=== PATIENT | male | born 1960 | race Caucasian/White ===

== ENCOUNTER 2022-06-03 10:18 | Emergency (ER) | payer OTHER, SELFPAY ==
[2022-06-03] VITALS (38 sets, daily range): BP systolic 111–154; BP diastolic 70–105; PULSE 70–97; RESP 14–18; TEMP 36.4–37; O2SAT 94–99; BMI 36.3
--- NOTE | 2022-06-03 10:59 | ED_ITS ---
HPI - Chest Pain General Chief Complaint: Chest Pain Stated Complaint: sternum pain Time Seen by Provider: 06/03/22 10:49 History of Present Illness HPI narrative: This 61-year-old male comes in reporting chest discomfort over the past 3 days. He states that he had a heart attack 12 years ago and has been doing well since then. Three days ago he began having chest discomfort when walking a rather short distance. After stopping and resting he states the pain went away. Since then when ambulating he began to get short of breath, some lightheadedness, and chest pain. These symptoms resolved when resting. He does not report any diaphoresis, nausea, or vomiting. He takes a regular strength aspirin daily and did so today prior to arrival here. Currently he is having no symptoms. Related Data Home Medications Medication Instructions Recorded Confirmed alprazolam 0.5 mg tablet mg 06/03/22 clopidogrel 75 mg tablet mg 06/03/22 ezetimibe 10 mg tablet mg 06/03/22 methylphenidate HCl 36 mg mg PO 06/03/22 tablet,extended release 24 hr (Concerta) metoprolol tartrate 25 mg tablet mg 06/03/22 tamsulosin 0.4 mg capsule mg PO 06/03/22 Allergies Allergy/AdvReac Type Severity Reaction Status Date / Time isosorbide Allergy Verified 06/03/22 10:28 Review of Systems Status of ROS Reports: 10 or more systems reviewed and unremarkable except as noted in History and below Narrative Constitutional: No fevers, no weight gain or loss. Eyes: No discharge. No vision changes. HENT: No congestion, no sore throat, no ear pain. Cardiovascular: No palpitations. Chest pain as described above. Respiratory: No wheezes, no cough. Shortness of breath with exertion. Gastrointestinal: No abdominal pain, no vomiting, no diarrhea. Genitourinary: No dysuria, no hematuria. Musculoskeletal: Normal range of motion. Skin: No rashes, no pruritis. Neurological: No dizziness, weakness, sensory change, speech change. Endo/Heme/Allergies: No bruising or bleeding. No polydipsia. Pysch: no suicidality, no anxiety, no insomnia. All other systems reviewed and are negative. PFSH PFSH Social History Smoking Status: Never smoker How often do you have a drink containing alcohol: monthly or less How many standard drinks containing alcohol do you have on a typical day: 1 or 2 How often do you have six or more drinks on one occasion: Never AUDIT-C Alcohol total score: 1 Non-prescribed substance use: denies use Exam Narrative Exam Narrative: Constitutional: Well-developed, well-nourished, no acute distress. HEENT: Normocephalic, atraumatic. Neck: Normal range of motion. Nontender. Supple. Heart: Regular. No murmurs. Normal rate. Intact distal pulses. Lungs: Clear to auscultation. No chest discomfort. No wheezes, rhonchi, or rales. Abdomen: Normal bowel sounds. Nontender. No rebound tenderness. Genitalia: Deferred. Back: No midline tenderness. Normal range of motion. Extremities: Normal range of motion. No injury. Skin: Intact. No rash. Warm. No erythema or pallor. Neurologic: No altered sensation. No weakness. Alert and oriented. Psychiatric: No suicidality. No anxiety or depression. No insomnia. Nursing notes and vitals signs are reviewed. Const Vital Signs, click to edit/add: Vital Signs - 24 hr 06/03/22 10:24 06/03/22 12:11 06/03/22 12:15 Temperature 98.6 F Pulse Rate 74 73 Pulse Rate [Right Pulse Oximeter] 80 Respiratory Rate 18 Blood Pressure Blood Pressure [Right Upper Arm] 154/101 H Pulse Oximetry 96 95 96 Oxygen Delivery Method Room Air 06/03/22 12:30 06/03/22 10:45 06/03/22 12:45 Temperature Pulse Rate 73 81 Pulse Rate [Right Pulse Oximeter] 72 Respiratory Rate Blood Pressure Blood Pressure [Right Upper Arm] 137/95 H Pulse Oximetry 99 95 98 Oxygen Delivery Method Room Air 06/03/22 13:00 06/03/22 13:12 06/03/22 13:36 Temperature Pulse Rate 86 85 Pulse Rate [Right Pulse Oximeter] Respiratory Rate Blood Pressure 147/89 H Blood Pressure [Right Upper Arm] Pulse Oximetry 99 Oxygen Delivery Method 06/03/22 13:45 06/03/22 14:00 06/03/22 14:15 Temperature Pulse Rate 92 97 92 Pulse Rate [Right Pulse Oximeter] Respiratory Rate Blood Pressure Blood Pressure [Right Upper Arm] Pulse Oximetry 99 97 97 Oxygen Delivery Method 06/03/22 14:30 06/03/22 14:36 06/03/22 14:45 Temperature Pulse Rate 86 89 83 Pulse Rate [Right Pulse Oximeter] Respiratory Rate Blood Pressure 111/97 H Blood Pressure [Right Upper Arm] Pulse Oximetry 96 96 95 Oxygen Delivery Method 06/03/22 15:00 06/03/22 15:15 06/03/22 15:30 Temperature Pulse Rate 85 85 83 Pulse Rate [Right Pulse Oximeter] Respiratory Rate Blood Pressure Blood Pressure [Right Upper Arm] Pulse Oximetry 96 95 94 Oxygen Delivery Method 06/03/22 15:37 06/03/22 15:38 06/03/22 15:45 Temperature Pulse Rate 77 82 76 Pulse Rate [Right Pulse Oximeter] Respiratory Rate Blood Pressure 128/70 Blood Pressure [Right Upper Arm] Pulse Oximetry 94 94 95 Oxygen Delivery Method 06/03/22 16:00 06/03/22 16:15 06/03/22 16:30 Temperature Pulse Rate 82 77 80 Pulse Rate [Right Pulse Oximeter] Respiratory Rate Blood Pressure Blood Pressure [Right Upper Arm] Pulse Oximetry 96 95 97 Oxygen Delivery Method 06/03/22 16:45 06/03/22 17:00 06/03/22 17:15 Temperature Pulse Rate 77 79 77 Pulse Rate [Right Pulse Oximeter] Respiratory Rate Blood Pressure Blood Pressure [Right Upper Arm] Pulse Oximetry 96 95 96 Oxygen Delivery Method 06/03/22 17:30 06/03/22 17:42 06/03/22 17:43 Temperature Pulse Rate 81 85 75 Pulse Rate [Right Pulse Oximeter] Respiratory Rate Blood Pressure 150/93 H Blood Pressure [Right Upper Arm] Pulse Oximetry 96 96 95 Oxygen Delivery Method 06/03/22 17:45 06/03/22 18:00 06/03/22 18:15 Temperature Pulse Rate 74 70 76 Pulse Rate [Right Pulse Oximeter] Respiratory Rate Blood Pressure Blood Pressure [Right Upper Arm] Pulse Oximetry 94 95 95 Oxygen Delivery Method 06/03/22 18:30 06/03/22 18:36 06/03/22 18:59 Temperature 97.6 F Pulse Rate 75 82 Pulse Rate [Right Pulse Oximeter] 72 Respiratory Rate 14 Blood Pressure 140/105 H Blood Pressure [Right Upper Arm] 148/91 H Pulse Oximetry 95 95 96 Oxygen Delivery Method Room Air 06/03/22 18:37 06/03/22 18:45 Temperature Pulse Rate 79 78 Pulse Rate [Right Pulse Oximeter] Respiratory Rate Blood Pressure Blood Pressure [Right Upper Arm] Pulse Oximetry 95 95 Oxygen Delivery Method Course Vital Signs Vital signs: Initial Vital Signs Temperature 98.6 F 06/03/22 10:24 Temperature Source Temporal Artery Scan 06/03/22 10:24 Pulse Rate 80 06/03/22 10:24 Respiratory Rate 18 06/03/22 10:24 Blood Pressure 154/101 H 06/03/22 10:24 Blood Pressure Mean 118 06/03/22 10:24 Blood Pressure Position Sitting 06/03/22 10:24 Pulse Oximetry 96 06/03/22 10:24 Oxygen Delivery Method 06/03/22 10:24 Vital Signs Temperature 98.6 F 06/03/22 10:24 Pulse Rate 80 06/03/22 10:24 Respiratory Rate 18 06/03/22 10:24 Blood Pressure 154/101 H 06/03/22 10:24 Pulse Oximetry 96 06/03/22 10:24 Oxygen Delivery Method 06/03/22 10:24 Temperature 97.6 F 06/03/22 18:59 Pulse Rate 72 06/03/22 18:59 Respiratory Rate 14 06/03/22 18:59 Blood Pressure 148/91 H 06/03/22 18:59 Pulse Oximetry 96 06/03/22 18:59 Oxygen Delivery Method 06/03/22 18:59 MDM - Chest Pain MDM Narrative Medical decision making narrative: This patient comes in with chest pain that is reproduced when walking a rather short distance and relieved when resting. No his EKG and labs returned with normal findings. His symptoms are nevertheless very suspicious for approaching unstable angina. He does have a cardiac history with a heart attack about 12 years ago in stents placed at that time. He did have a CT angiogram about 3 or 4 years ago that was negative. The patient is not having any symptoms currently when remaining still. He did take a aspirin prior to arrival today. I spoke with the sports trainer engineer remote control diesel at [facility], Dr. Wyman, who wants him transferred there for an angiogram. There will be a bed available there in 48 hours. At 7:20 p.m. the patient was able to leave by ambulance to be admitted at [facility] for ongoing management and treatment. Lab Data Labs: Lab Results 06/03/22 06/03/22 06/03/22 Range/Units 10:59 11:20 11:20 WBC 9.70 (4.50-11.00) K/uL RBC 6.32 H (4.30-5.90) m/uL Hgb 17.8 H (13.5-17.5) gm/dL Hct 52.7 (37.0-53.0) % MCV 83 (80-100) fL MCH 28 (26-34) pg MCHC 34 (32-36) gm/dL RDW Coeff of Dalton 13.0 (11.5-15.5) % Plt Count 261 (140-440) K/uL Neut % (Auto) 70.6 (42.0-72.0) % Lymph % (Auto) 18.1 L (20-44) % Kent % (Auto) 9.1 (0.0-11.0) % Eos % (Auto) 1.6 (0.0-7.0) % Baso % (Auto) 0.3 (0.0-3.0) % Neut # (Auto) 6.84 (1.7-7.0) K/uL Lymph # (Auto) 1.80 (0.90-2.90) K/uL Kent # (Auto) 0.90 (0.00-0.90) K/UL Eos # (Auto) 0.16 (0.00-0.50) K/uL Baso # (Auto) 0.03 (0.00-0.30) K/uL Sodium 136 (135-149) mmol/L Potassium 4.1 (3.6-5.1) mmol/L Chloride 105 (96-114) mmol/L Carbon Dioxide 28 (20-32) mmol/L BUN 24 (7-30) mg/dL Creatinine 0.8 (0.5-1.5) mg/dL Estimated Creat Clear 69.12 Estimated GFR 100 ml/min Glucose 99 (60-115) mg/dL Calcium 8.9 (8.4-10.6) mg/dL SARS-CoV-2 (PCR) (Negative) POC Troponin I 0.01 (0.01-0.04) ng/ml 06/03/22 Range/Units 14:31 WBC (4.50-11.00) K/uL RBC (4.30-5.90) m/uL Hgb (13.5-17.5) gm/dL Hct (37.0-53.0) % MCV (80-100) fL MCH (26-34) pg MCHC (32-36) gm/dL RDW Coeff of Dalton (11.5-15.5) % Plt Count (140-440) K/uL Neut % (Auto) (42.0-72.0) % Lymph % (Auto) (20-44) % Kent % (Auto) (0.0-11.0) % Eos % (Auto) (0.0-7.0) % Baso % (Auto) (0.0-3.0) % Neut # (Auto) (1.7-7.0) K/uL Lymph # (Auto) (0.90-2.90) K/uL Kent # (Auto) (0.00-0.90) K/UL Eos # (Auto) (0.00-0.50) K/uL Baso # (Auto) (0.00-0.30) K/uL Sodium (135-149) mmol/L Potassium (3.6-5.1) mmol/L Chloride (96-114) mmol/L Carbon Dioxide (20-32) mmol/L BUN (7-30) mg/dL Creatinine (0.5-1.5) mg/dL Estimated Creat Clear Estimated GFR ml/min Glucose (60-115) mg/dL Calcium (8.4-10.6) mg/dL SARS-CoV-2 (PCR) Negative SARS-CoV-2 (Negative) POC Troponin I (0.01-0.04) ng/ml ECG Data Attestation: I personally reviewed and interpreted this ECG as follows: Interpretation: Normal sinus rhythm. Rate is 74 beats per minute. There are no ST or T-wave abnormalities. Discharge Plan Discharge Clinical Impression: Unstable angina pectoris Patient Disposition: [facility] Condition: Unchanged Prescriptions: No Action clopidogrel 75 mg tablet Label Comments: TAKE ONE TABLET BY MOUTH ONE TIME DAILY alprazolam 0.5 mg tablet Label Comments: TAKE ONE TABLET BY MOUTH ONE TIME DAILY AT BEDTIME NEEDED. USE SPARINGLY. methylphenidate HCl [Concerta] 36 mg tablet extended release 24hr PO Label Comments: TAKE 1 TABLET (36 MG) BY MOUTH ONCE DAILY. ezetimibe 10 mg tablet Label Comments: TAKE ONE TABLET BY MOUTH ONE TIME DAILY metoprolol tartrate 25 mg tablet Label Comments: TAKE ONE TABLET BY MOUTH TWICE DAILY tamsulosin 0.4 mg capsule PO Label Comments: Take 1 Capsule (0.4 mg) by mouth once daily after a meal. Increase to 2 capsules daily after 4 weeks Follow Up/Referrals: Risa Campoverde PA-C [Primary Care Provider] - Stand Alone Forms: [employer] Info Instructions
[2022-06-03 11:34] LABS: Basophils Absolute Auto 0.03 K/uL (0.00-0.30); Basophils Percent Auto 0.3 % (0.0-3.0); Eosinophils Absolute Auto 0.16 K/uL (0.00-0.50); Eosinophils Percent Auto 1.6 % (0.0-7.0); Hematocrit 52.7 % (37.0-53.0); Hemoglobin* 17.8 gm/dL (13.5-17.5); Immature Granulocytes Abs Auto 0.03 K/uL (0.00-0.30); Immature Granulocytes Pct Auto 0.3 %; Lymphocytes Percent Auto 18.1 % (20-44); Mean Corpuscular HGB Conc 34 gm/dL (32-36); Mean Corpuscular Hemoglobin 28 pg (26-34); Mean Corpuscular Volume 83 fL (80-100); Monocytes Percent Auto 9.1 % (0.0-11.0); Neutrophils Absolute Auto 6.84 K/uL (1.7-7.0); Neutrophils Percent Auto 70.6 % (42.0-72.0); Platelet Count* 261 K/uL (140-440); Red Blood Count 6.32 m/uL (4.30-5.90)
[2022-06-03 11:34] LABS: Troponin, Point-of-Care* 0.01 ng/ml (0.01-0.04)
[2022-06-03 11:36] LABS: Slide Review Reflex No
[2022-06-03 11:48] LABS: Chloride* 105 mmol/L (96-114)
[2022-06-03 11:49] LABS: Potassium* 4.1 mmol/L (3.6-5.1); Sodium* 136 mmol/L (135-149)
[2022-06-03 11:51] LABS: Carbon Dioxide* 28 mmol/L (20-32); Creatinine* 0.8 mg/dL (0.5-1.5); Est. Creatinine Clearance* 69.12; Estimated Glomerular Filt Rate 100 ml/min
[2022-06-03 11:52] LABS: Blood Urea Nitrogen* 24 mg/dL (7-30); Calcium* 8.9 mg/dL (8.4-10.6); Glucose* 99 mg/dL (60-115)
[2022-06-03 15:41] LABS: SARS PCR* Negative SARS-CoV-2 (Negative)
--- NOTE | 2022-06-03 17:18 | ED.NURSE ---
report given to JANETH Flynn at [facility]. pt will go to [id number] via [facility]
== END 2022-06-03 19:20 | disposition home or self-care (01) ==
PROVIDERS: Emergency Provider Emergency Medicine Emergency Medical Services; PCP Physician Assistant Medical
DX: I20.0 Unstable angina (principal)
CPT/HCPCS: 36415; 80048; 84484; 85025; 87635; 93005; 99285

== ENCOUNTER 2022-06-03 19:11 | Outpatient (CLI) | payer OTHER, SELFPAY | END 2022-06-03 19:12 | disposition home or self-care (01) | LOC: AMB 06-04 23:20 | PROVIDERS: PCP Physician Assistant Medical; Visit Provider Family Medicine | DX: I20.0 Unstable angina (principal) | CPT/HCPCS: A0425; A0426; A0427 ==

== ENCOUNTER 2022-08-20 11:15 | Outpatient (RCR) | payer OTHER, SELFPAY | END 2022-11-20 23:59 | disposition home or self-care (01) | PROVIDERS: PCP Physician Assistant Medical; Visit Provider Podiatrist | DX: M19.071 Primary osteoarthritis, right ankle and foot (principal); G57.51 Tarsal tunnel syndrome, right lower limb; Z51.89 Encounter for other specified aftercare | CPT/HCPCS: 97110; 97140; 97161 ==

== ENCOUNTER 2022-11-10 06:15 | Day surgery (SDC) | payer OTHER, SELFPAY ==
[2022-11-10] VITALS (13 sets, daily range): BP systolic 104–128; BP diastolic 76–93; PULSE 70–84; RESP 16–20; TEMP 36.4–37; O2SAT 94–98; BMI 34.7
[2022-11-10] MEDS: LACTATED RINGERS 1000 ML 1,000 ML 100 ML IV (06:10)
[2022-11-10] MEDS: SODIUM CHLORIDE 0.9 % (FLUSH) 10 ML SYRINGE IVF (07:02)
[2022-11-10] MEDS: SCOPOLAMINE 1 MG/3 DAY PATCH 1 PATCH TRANSDERMA (07:20)
[2022-11-10] MEDS: CEFAZOLIN 2 GM in 0.9 % SODIUM CHLORIDE Mini-bag 100 ML IVPB (07:35)
[2022-11-10] MEDS: ROPIVACAINE 0.5% 30 ML 150 MG INJECTION (07:54)
--- NOTE | 2022-11-10 08:08 | W.ANESCHARGE ---
Anesthesia Charges Start Date/Time Anesthesia Start Date: 11/10/22 Anesthesia Start Time: 07:30 Stop Date/Time Anesthesia Stop Date: 11/10/22 Anesthesia Stop Time: 08:28
--- NOTE | 2022-11-10 08:14 | P.ORPRC_ITS ---
Procedure Note Date of procedure: 11/10/22 Procedure: PREOPERATIVE DIAGNOSIS: 1. Right knee medial and lateral meniscus tear POSTOPERATIVE DIAGNOSIS: 1. Right knee medial and lateral meniscus tear 2. 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 Right knee arthroscopic partial medial and lateral meniscectomy SURGEON: Suleman Buchanan M.D. MILLER HEAD WET PROCESS: CORINA Rolle. Of note, an boiler assistant operator was critical for this case to aid in patient positioning, knee manipulation, instrument exchange, and closure. ANESTHESIA: General LMA EBL: 2ml TOURNIQUET: 30 min at 300 torr COMPLICATIONS: None evident INDICATIONS: The patient is a pleasant 61-year-old male who has experienced right knee pain particularly with any twisting or turning. Physical exam was concerning for medial meniscus tear, this was confirmed on MRI. Additionally, attempted nonoperative management has been tried, and failed. Thus, surgery was recommended. FINDINGS: Complex tearing posterior horn to midbody lateral meniscus. Posterior root was intact. Medial meniscus showed central tearing at the midbody to posterior horn junction. Posterior root was intact. Grade 3 chondromalacia over a a 10 mm region weight-bearing portion centrally medial femoral condyle. Grade 2-3 chondromalacia patella median ridge. Grade 1-2 chondromalacia trochlear groove. ACL and PCL intact robust. DESCRIPTION OF PROCEDURE: After a thorough discussion of risks, benefits, and alternatives, the patient was brought to the operating room and placed upon the operating table. Induction of anesthesia was undertaken as previously noted. 2g iv Ancef was administered within 1 hr of incision preoperatively. Appropriate time-out was performed identifying proper patient, site, and procedure. The right lower extremity was prepped and draped in the appropriate sterile fashion using ChloraPrep. The limb was exsanguinated and tourniquet inflated. Anterolateral and anteromedial portals were established with an 11 blade, and a diagnostic arthroscopy was performed. This identified the findings as noted above. Following the diagnostic arthroscopy, a partial medial and lateral menisectomy was performed with the combination of basket forceps and a motorized shaver. Following this, the meniscus was re-probed and found to be stable. Approximately 10-15 % of the overall lateral meniscus and 5-10% of the overall medial meniscus required resection. At this stage, the shaver was reinserted into the suprapatellar pouch and all remaining meniscal debris was evacuated. Instruments were removed, excess fluid was drained, and closure performed with 4-0 Monocryl with Steri-Strips. Dressings were applied, the tourniquet deflated, and the patient was awoken from anesthesia and transferred to the PACU in stable condition. PLAN: 1. Weightbear as tolerated operative extremity. Crutch / walker ambulation assistance PRN. 2. Ice, acetominophen and/or ibuprofen, and Percocet for pain as needed. 3. Knee range of motion and quad sets/straight leg raise regularly 4. Follow up with PA visit in 1-2 weeks for a wound check and possibly to initiate physical therapy.
--- NOTE | 2022-11-10 08:28 | W.ANESCHARGE ---
Anesthesia Charges Start Date/Time Anesthesia Start Date: 11/10/22 Anesthesia Start Time: 07:30 Stop Date/Time Anesthesia Stop Date: 11/10/22 Anesthesia Stop Time: 08:28
== END 2022-11-10 10:14 | disposition home or self-care (01) ==
PROVIDERS: PCP Physician Assistant Medical; Visit Provider Orthopaedic Surgery Sports Medicine
PROC: (CPT 29870; principal; 2022-11-10 07:30)
DX: S83.271A Complex tear of lateral meniscus, current injury, right knee, initial encounter (principal); S83.241A Other tear of medial meniscus, current injury, right knee, initial encounter; M22.41 Chondromalacia patellae, right knee
CPT/HCPCS: 29880; 01400; A9270; J0690; J1100; J2250; J2405; J2704; J2795; J3010; J7120

== ENCOUNTER 2022-11-18 15:51 | Outpatient (CLI) | payer OTHER, SELFPAY ==
--- NOTE | 2022-11-18 16:00 | CRLHL7_ITS ---
For Patients: As a result of the Century Cures Act, medical imaging exams and procedure reports are released immediately into your electronic medical record. You may view this report before your referring provider. If you have questions, please contact your health care provider. INDICATION: Leg pain and swelling TECHNIQUE: Ultrasound venous duplex lower right extremity. Compression venous exam was performed using villegas-scale, color Doppler, and spectral Doppler imaging. COMPARISON: None. FINDINGS: Sonographic imaging demonstrates the right common femoral, deep femoral, superficial femoral, popliteal, posterior tibial and greater saphenous and the contralateral left common femoral veins to be fully compressible with normal color Doppler blood flow. IMPRESSION: Normal right lower extremity venous ultrasound, no sign of deep venous thrombosis. Dictated by John Sampson MD @ 11/18/2022 5:17:51 PM (Electronically Signed)
== END 2022-11-18 15:52 | disposition home or self-care (01) ==
LOC: US 15:53
PROVIDERS: PCP Physician Assistant Medical; Visit Provider Physician Assistant Surgical
DX: R22.41 Localized swelling, mass and lump, right lower limb (principal); M79.604 Pain in right leg; Z98.890 Other specified postprocedural states
CPT/HCPCS: 93971

== ENCOUNTER 2023-08-14 07:58 | Outpatient (CLI) | payer OTHER, SELFPAY ==
--- OUTSIDE RECORDS SUMMARY | 2023-08-14 08:01 | XMS_ITS | Clinical Summary ---
Author Name Unknown Organization [facility] Address [place], [place] [address] Care Team Providers Care Lining Brusher Name Role Phone Emanuel Dolan MD Unavailable [phone] Risa Campoverde Primary Care Provider Rito Daily PsyD, LP Unavailable [phone] Allergies Active Allergy Reactions Criticality Noted Date Comments Citalopram Rash,*Unknown 04/10/2021 Isosorbide Chest Pain,Nausea Only,Shortness Of Breath,Rash 11/20/2010 headache Escitalopram Oxalate Rash High 01/05/2020 Medications Medication Sig Dispensed Refills Start Date End Date Status Coenzyme Q10 (CO Q-10) 200 mg capsuleIndications :Dyslipidemia (high LDL; low HDL) Take 1 capsule by mouth once daily. 90 capsule 3 07/11/19 15 Active multivitamin (MVI) tablet Take 1 Tablet by mouth once daily. 0 11/10/19 15 Active cholecalciferol, vitamin D3, 100 mcg (4,000 unit) cap Take 1 Tablet by mouth once daily. 0 08/14/19 19 Active omeprazole (PRILOSEC) 20 mg Delayed-Release capsuleIndications :Gastroesophageal reflux disease, esophagitis presence not specified TAKE ONE CAPSULE BY MOUTH ONE TIME DAILY WITH FOOD 90 capsule 2 10/28/19 20 Active aspirin chewable 81 mg chewable tabletIndications: Unstable angina (HC) Chew 1 Tablet (81 mg) by mouth once daily with a meal. *Decreased dose as of 06/04/2022* 90 Tablet 3 06/05/19 23 Active ALPRAZolam (XANAX) 0.5 mg tabletIndications: Anxiety TAKE ONE TABLET BY MOUTH ONE TIME DAILY AT BEDTIME NEEDED. USE SPARINGLY. 15 Tablet 11/22/19 23 Active evolocumab (Repatha SureClick) 140 mg/mL subcutaneous pen injector Inject 1 mL (140 mg) subcutaneous every 2 weeks. Inject into abdomen, thigh, or upper arm; rotate injection sites. 6 mL 3 11/26/19 23 Active aspirin chewable 81 mg chewable tabletIndications: S/P CABG x 1 Chew 1 Tablet (81 mg) by mouth once daily. 0 01/30/20 23 Active acetaminophen (TYLENOL EXTRA STRGTH) 500 mg tabletIndications: S/P CABG x 1 Take 1 Tablet (500 mg) by mouth every 4 hours if needed for Pain. Max acetaminophen dose: 4000mg in 24 hrs. 0 01/29/20 23 Active ondansetron (ZOFRAN ODT) 4 mg disintegrating tabletIndications: Nausea Place 1 Tablet (4 mg) on the tongue every 8 hours if needed for Nausea/Vomiting. 30 Tablet 02/05/20 23 Active nitroglycerin (Nitrostat) 0.4 mg sublingual tabletIndications: Arteriosclerotic heart disease (ASHD) PLACE 1 TABLET UNDER THE TONGUE EVERY 5 MINUTES IF NEEDED FOR CHEST PAIN FOR UP TO 3 DOSES; CALL 911 IF NO RELIEF AFTER FIRST DOSE 100 Tablet 3 02/14/20 23 Active tamsulosin (FLOMAX) 0.4 mg capsuleIndications :BPH without urinary obstruction Take 1 Capsule (0.4 mg) by mouth once daily after a meal. 90 Capsule 3 02/28/20 23 Active metoprolol succinate (TOPROL XL) 50 mg sustained-release tabletIndications: S/P CABG x 1 Take 1 Tablet (50 mg) by mouth two times daily. 180 Tablet 3 04/01/20 23 Active sildenafil citrate (VIAGRA) 100 mg tabletIndications: Erectile dysfunction of organic origin Take 0.5 Tablets (50 mg) by mouth once daily if needed for Erectile Dysfunction. Take 30min to 4 hours before sexual activity. Max 100mg/24hr. 30 Tablet 05/05/19 24 Active ezetimibe (ZETIA) 10 mg tabletIndications: Coronary artery disease involving [place] coronary artery of [place] heart without angina pectoris TAKE ONE TABLET BY MOUTH ONE TIME DAILY 90 Tablet 3 05/30/19 24 Active clopidogreL (PLAVIX) 75 mg tabletIndications: S/P coronary artery stent placement Take 1 Tablet (75 mg) by mouth once daily. 90 Tablet 07/05/19 24 Active lisdexamfetamine (VYVANSE) 30 mg capsuleIndications :Attention deficit hyperactivity disorder (ADHD), predominantly inattentive type Take 1 Capsule (30 mg) by mouth every morning. 30 Capsule 08/01/19 24 Active rosuvastatin (CRESTOR) 40 mg tabletIndications: Coronary artery disease involving [place] coronary artery of [place] heart without angina pectoris,S/P CABG x 1 TAKE ONE TABLET BY MOUTH EVERY OTHER DAY AT BEDTIME 45 Tablet 3 07/27/19 24 Active rosuvastatin (Crestor) 40 mg tablet Take 40 mg by mouth once every other day. Takes on odd-numbered days. 024 Discontinued lisdexamfetamine (VYVANSE) 30 mg capsuleIndications :Attention deficit hyperactivity disorder (ADHD), predominantly inattentive type Take 1 Capsule (30 mg) by mouth every morning. 30 Capsule 07/03/19 24 024 Discontinued(Re order (E-cancel not sent)) Active Problems Problem Noted Date Diagnosed Date S/P CABG x 1 01/23/2023 Overview: Left internal mammary artery to left anterior descending artery - Dr Harman Benign prostatic hyperplasia with lower urinary tract symptoms 06/03/2022 Unstable angina 06/03/2022 Angina of effort 02/03/2020 Crescendo angina 08/31/[address] angiography 08/31/2019 Attention deficit hyperactivity disorder 015 Controlled substance agreement signed 07/10/2014 Overview: Date Signed: 12/27/2012 Physician: Arcelia Alvarez MD Medication: Concerta 27mg daily Quantity per month: #30 Pharmacy: [facility] Last Toxasure: 06/2016 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 10/25/2012 Adjustment disorder with anxiety 10/25/2012 S/P coronary artery stent placement 02/25/2011 Overview: 02/05/20: FAVIAN x1 to LAD diagonal Spasm: coronary artery 02/25/2011 HTN (hypertension) 01/16/2011 GERD (gastroesophageal reflux disease) 1 Dyslipidemia (high LDL; low HDL) 08/30/2010 Arteriosclerotic heart disease (ASHD) 08/29/2010 Overview: - 08/29/10 Level One Anterior STEMI, s/p thrombectomy and FAVIAN to prox LAD, EF 50% by LV gram Resolved Problems Problem Noted Date Diagnosed Date Resolved Date Cerebral palsy, unspecified type 06/03/2022 06/03/2022 Routine adult health maintenance 02/03/2014 09/05/2015 Overview: Colonoscopy 02/2014 normal repeat in 10 years Hx of Tobacco abuse 01/16/2011 05/17/19 Unstable angina 01/16/2011 01/01/2012 Chest pain, unspecified 11/20/201012/04 Acute IA anterior first episode care 08/29/2010 01/01/2012 Encounters Date Type Department Care Team Description 07/24/2023 Refill [facility] [address] [place] [address] Risa Campoverde PA Refill Request (Rosuvastatin) 07/17/2023 Telephone [facility] [address] [place] [address] Risa Campoverde PA Form (Parking permit) 07/16/2023 10:30 AM CDT Ancillary Procedure [facility] [address] [place] [address] 07/16/2023 9:00 AM CDT Ancillary Procedure [facility] [address] [place] [address] 07/16/2023 Travel 07/05/2023 Refill [facility] [address] [place] [address] Consuelo Linn, BACON SKINNER Refill Request (Clopidogrel) 06/17/2023 2:20 PM DOPE SPRAYER Office Visit [facility] [address] [place] [address] Risa Campoverde PA Abdominal Pain (Upper abd pain on R side that comes and goes randomly. 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 ) 05/19/2023 Telephone [facility] [address] [facility] [address] [place] [address] Vladimir Archuleta MD Appointment Request 05/19/2023 Travel from Last 3 Months Immunizations Name Administration Dates Next Due COVID-19 vaccine (Moderna 100mcg/0.5mL) PF, MDV 08/13/2020,07/16/2020 Influenza Virus, Unspecified 03/03/2018 Influenza, IIV3 (Age >=3 years) 03/15/2013,03/18,02/25/2011 Influenza, IIV4 02/06/2020, 9,03/15/2017,2015,02/23/2015,01/17/2014 Influenza, IIV4 (=>6mos) MDV 03/03/2018 Tdap 11/21/2010 Zoster (Zostavax-ZVL, live) 04/09/2015 Family History Medical History Relation Name Comments Good Health Brother Blindness Daughter Adopted Depression Daughter Adopted Has required ho spitalizations Heart Disease Father CABG stent in 60-70's Heart Disease Maternal Grandfather M I in 50's Heart Disease Maternal Grandmother Alcoholism Maternal Uncle Heart Disease Mother Stents in her 70's Hyperlipidemia Mother Hypertension Mother Cancer Paternal Grandfather Diabetes Paternal Grandmother Good Health Sister 1 Good Health Sister 2 Good Health Sister 3 Depression Son Adopted Anesthesia Malignant Hyperthermia No Family History Blood Disease No Family History Relation Name Status Comments Brother Daughter Adopted Alive Father Maternal Grandfather Maternal Grandmother Maternal Uncle Mother Paternal Grandfather Paternal Grandmother Sister 1 Sister 2 Sister 3 Son Adopted Social History Tobacco Use Types Packs/Day Years Used Date Smoking Tobacco: Never Smokeless Tobacco: Never Tobacco Cessation:Counseling Given: Yes Comments:Tried during child 1-2 times. Never a routine smoker. Alcohol Use Standard Drinks/Week Comments Yes 0 (1 standard drink = 0.6 oz pur e alcohol) Occasional PHQ-2 Answer Date Recorded PHQ-2 TOTAL SCORE 0 02/11/2023 Social Connections Answer Date Recorded Frequency of Communication with Friends and Fami ly 0 05/05/2023 Financial Resource Strain Answer Date R ecorded Difficulty of Paying Living Expenses 3 05/05/2023 Difficulty of Paying Living Expenses Not on file 05/05/2023 Food Insecurity Answer Date Recorded Worried About Running Out of Food in the Last Ye ar 1 05/05/2023 Transportation Needs Answer Date Record ed Lack of Transportation (Medical) 1 05/05/2023 Housing Stability Answer Date Recorded Unable to Pay for Housing in the Last Year 1 05/05/2023 Sex and Gender Information Value Date Recorded Sex Assigned at Not on file Gender Identity Not on file Sexual Orientation Not on file Obstetrics History Last Filed Vital Signs Vital Sign Reading Time Taken Comments Blood Pressure 129/84 06/17/2023 2:16 PM DOPE SPRAYER Pulse 100 06/17/2023 2:16 PM DOPE SPRAYER Temperature 36.8 ??C (98.2 ??F) 05/08/2023 8:33 AM CS T Respiratory Rate 18 03/06/2023 8:00 PM CDT Oxygen Saturation 99% 06/17/2023 2:16 PM DOPE SPRAYER Inhaled Oxygen Concentration - - Weight 98.4 kg (217 lb) 06/17/2023 2:16 PM DOPE SPRAYER Height 167.6 cm (5' 6) 04/21/2023 4:15 PM DOPE SPRAYER Body Mass Index 35.02 04/21/2023 4:15 PM DOPE SPRAYER Plan of Treatment Health Maintenance Due Date Last Done Comments HIV for age 15-65 12/09/1974 Zoster (shingles) series for age 50+ (2 of 3) 06/04/2015 04/09/2015 Tetanus booster 11/21/2020 11/21/2010, 11/21/2010 COVID-19 vaccine series (2022-24 season) 2023 08/13/2020, 07/16/2020 Influenza for age 50-64 01/03/2024 02/06/20, 02/08/2019, 03/03/2018, Additional history exists Colonoscopy through age 75 02/04/2024 02/03/2014 Depression screening for age 12+ 02/14/2024 02/13/2023, 02/11/2023, 02/11/2023, Additional history exists BMI (ht and wt on same day) for age 18+ 04/21/2024 04/21/2023, 04/02/2023, 11/07/2022, Additional history exists Lipids for age 45-75 01/17/2028 01/16/2023, 06/04/2022, 05/09/2020, Additional history exists Tdap Completed 11/21/2010 Hepatitis C screening for age 18-79 Completed 05/17/2013 Pneumococcal series for age 6-64 Aged Out No longer eligible based on patient's age to complete this topic Procedures Procedure Name Priority Date/Time Associated Diagnosis Comments US THYROID/PARATHYROID Routine 07/16/2023 9:34 AM CDT Thyroid mass US ABDOMEN LIMITED RUQ Routine 07/16/2023 9:34 AM CDT Abdominal pain, RUQ (right upper quadrant) CT ANGIO HEAD AND NECK CAROTID Routine 05/20/2023 12:18 PM DOPE SPRAYER Celiac artery aneurysm (HC) CREATININE,ISTAT Routine 05/20/2023 11:5 7 AM DOPE SPRAYER LIPID PANEL Early AM 01/16/2023 7:58 AM CDT ANTI HCV Routine 05/17/2013 1:30 PM DOPE SPRAYER Need for hepatitis C screening test from Last 3 Months or Most Recently Relevant to Health Maintenance Results * US THYROID/PARATHYROID (07/16/2023 9:34 AM CDT) Anatomical Region Laterality Modality THYROID Ultrasound 07/16/2023 2:27 PM CDT Impressions 07/16/2023 2:27 PM CDT Similar size and morphology of heterogeneous nodule arising from the inferior aspect of the isthmus. FNA was recommended in 2019. Dictated by Paresh Garcia MD @ 07/16/2023 2:27:08 PM (Electronically Signed) Narrative 07/16/2023 2:27 PM CDT For Patients: ??As a result of the Cures Act, medical imaging exams and procedure reports are released immediately into your electronic medical record. ??You may view this report before your referring provider. ??If you have questions, please contact your health care provider. INDICATION: Thyroid mass COMPARISON: Ultrasound 09/12/2019 TECHNIQUE: Kirkpatrick scale and color Doppler images were acquired of the thyroid gland. FINDINGS: Heterogeneous solid nodule arising from the inferior isthmus again noted measuring 3.0 x 1.7 x 2.8 cm, previously measuring 3.0 x 1.4 x 2.7 cm. The right lobe measures 3.8 x 1.2 x 1.3 cm and the left lobe measures 3.4 x 1.5 x 1.6 cm in size. Isthmus measures 5 millimeters. The color Doppler images demonstrate normal vascularity. There is no evidence of cervical lymphadenopathy or parathyroid mass. Procedure Note Paresh Garcia MD - 07/16/2023 For Patients: As a result of the Cures Act, medical imagingexams and procedure reports are released immediately into your electronicmedical record. You may view this report before your referring provider.If you have questions, please contact your health care provider. INDICATION: Thyroid mass COMPARISON: Ultrasound 09/12/2019 TECHNIQUE: Kirkpatrick scale and color Doppler images were acquired of the thyroid gland. FINDINGS: Heterogeneous solid nodule arising from the inferior isthmus again notedmeasuring 3.0 x 1.7 x 2.8 cm, previously measuring 3.0 x 1.4 x 2.7 cm. Theright lobe measures 3.8 x 1.2 x 1.3 cm and the left lobe measures 3.4 x1.5 x 1.6 cm in size. Isthmus measures 5 millimeters. The color Dopplerimages demonstrate normal vascularity. There is no evidence of cervicallymphadenopathy or parathyroid mass. IMPRESSION: Similar size and morphology of heterogeneous nodule arising from theinferior aspect of the isthmus. FNA was recommended in 2019. Dictated by Paresh Garcia MD @ 07/16/2023 2:27:08 PM (Electronically Signed) Risa DELATORRE US * US ABDOMEN LIMITED RUQ (07/16/2023 9:34 AM CDT) Anatomical Region Laterality Modality Abdomen, LIVER Ultrasound 07/16/2023 2:24 PM CDT Impressions 07/16/2023 2:24 PM CDT Normal right upper quadrant ultrasound. Dictated by Paresh Garcia MD @ 07/16/2023 2:24:08 PM (Electronically Signed) Narrative 07/16/2023 2:24 PM CDT For Patients: ??As a result of the Century Cures Act, medical imaging exams and procedure reports are released immediately into your electronic medical record. ??You may view this report before your referring provider. ??If you have questions, please contact your health care provider. INDICATION: Abdominal pain, RUQ (right upper quadrant) COMPARISON: 03/06/2023 TECHNIQUE: Real time kirkpatrick scale imaging and color Doppler analysis was performed of the right upper quadrant. FINDINGS: The patient`s liver is of normal size and has uniform echogenicity. ??There is a normal appearance of the hepatic IVC and proximal abdominal aorta. There is no evidence of ascites. The gallbladder is of normal size and there is no evidence of intraluminal stones or sludge. ??The gallbladder wall measures 3 mm in thickness. ??The common bile duct is of normal size and measures 4 mm in diameter at the level of the shane hepatis. ??The visualized pancreas appears normal. ??There is no evidence of a stone or hydronephrosis within the right kidney. ??The right kidney measures 11.1 cm in length. ?? Procedure Note Paresh Garcia MD - 07/16/2023 For Patients: As a result of the Cures Act, medical imagingexams and procedure reports are released immediately into your electronicmedical record. You may view this report before your referring provider.If you have questions, please contact your health care provider. INDICATION: Abdominal pain, RUQ (right upper quadrant) COMPARISON: 03/06/2023 TECHNIQUE: Real time kirkpatrick scale imaging and color Doppler analysis was performed ofthe right upper quadrant. FINDINGS: The patient`s liver is of normal size and has uniform echogenicity. Thereis a normal appearance of the hepatic IVC and proximal abdominal aorta.There is no evidence of ascites. The gallbladder is of normal size andthere is no evidence of intraluminal stones or sludge. The gallbladderwall measures 3 mm in thickness. The common bile duct is of normal sizeand measures 4 mm in diameter at the level of the shane hepatis. Thevisualized pancreas appears normal. There is no evidence of a stone orhydronephrosis within the right kidney. The right kidney measures 11.1 cmin length. IMPRESSION: Normal right upper quadrant ultrasound. Dictated by Paresh Garcia MD @ 07/16/2023 2:24:08 PM (Electronically Signed) Risa DELATORRE US * CT ANGIO HEAD AND NECK CAROTID (05/20/2023 12:18 PM DOPE SPRAYER) Anatomical Region Laterality Modality BRAIN, NECK Computed Tomogra phy 05/20/2023 2:03 PM DOPE SPRAYER Addenda Addendum by Sin Blevins MD on 05/20/2023 2:05 PM DOPE SPRAYER For Patients: ??As a result of the Cures Act, medical imaging exams and procedure reports are released immediately into your electronic medical record. ??You may view this report before your referring provider. ?? If you have questions, please contact your health care provider. INDICATION: Celiac artery aneurysm. TECHNIQUE: CTA neck with contrast bolus tracking, 3D angiographic rendering using maximum intensity projection (MIP) and images permanently archived. FINDINGS: There is no significant carotid artery stenosis or dissection. There is no significant vertebral artery stenosis or dissection. There is a 2.5 cm complex enhancing mid thyroid mass. The cervical spine is in normal alignment. Degenerative changes are noted in the cervical spine. IMPRESSION: 1. No significant carotid or vertebral artery stenosis or dissection. 2. Large complex enhancing thyroid mass; recommend sonography+/-FNA for further evaluation. Please note that all CT scans at this facility use dose modulation, iterative reconstruction, and/or weight-based dosing when appropriate to reduce radiation dose to as low as reasonably achievable. Dictated by iSn Blevins MD @ 05/20/2023 2:05:30 PM (Electronically Signed) Impressions 05/20/2023 2:03 PM DOPE SPRAYER Unremarkable head CTA. Please note that all CT scans at this facility use dose modulation, iterative reconstruction, and/or weight-based dosing when appropriate to reduce radiation dose to as low as reasonably achievable. Dictated by Sin Blevins MD @ 05/20/2023 2:03:26 PM (Electronically Signed) Narrative 05/20/2023 2:03 PM DOPE SPRAYER For Patients: ??As a result of the Cures Act, medical imaging exams and procedure reports are released immediately into your electronic medical record. ??You may view this report before your referring provider. ??If you have questions, please contact your health care provider. INDICATION: Celiac artery aneurysm. TECHNIQUE: CTA head with contrast bolus tracking, 3D angiographic rendering using maximum intensity projection (MIP) and images permanently archived. FINDINGS: There is normal opacification of the intracranial vasculature. There is no large vessel occlusion. No aneurysm is identified. Procedure Note Sin Blevins MD - 05/20/2023 For Patients: As a result of the Cures Act, medical imagingexams and procedure reports are released immediately into your electronicmedical record. You may view this report before your referring provider.If you have questions, please contact your health care provider. INDICATION: Celiac artery aneurysm. TECHNIQUE: CTA head with contrast bolus tracking, 3D angiographic rendering usingmaximum intensity projection (MIP) and images permanently archived. FINDINGS: There is normal opacification of the intracranial vasculature. There is no large vessel occlusion. No aneurysm is identified. IMPRESSION: Unremarkable head CTA. Please note that all CT scans at this facility use dose modulation,iterative reconstruction, and/or weight-based dosing when appropriate toreduce radiation dose to as low as reasonably achievable. Dictated by Sin Blevins MD @ 05/20/2023 2:03:26 PM (Electronically Signed) Pancho Orozco MD CT * CREATININE,ISTAT (05/20/2023 11:57 AM DOPE SPRAYER) [facility] CREATININE, POCT 0.90 0.57 - 1.11 mg/dL 05/20/2023 12:01 PM DOPE SPRAYER [facility] eGFR >90 >90 mL/min/1.7 3m2 05/20/2023 12:01 PM DOPE SPRAYER [facility] Comment:As of 2021, eG FR is calculated by the CKD-EPI creatinine equation without race adjustment. eGFR can be influenced by muscle mass, exercise, and diet. The reported eGFR is an estimation only and is only applicable if the renal function is stable. Blood BLOOD SPECIMEN / Unknown 05/20/2023 11:57 AM DOPE SPRAYER 05/20/2023 12:00 PM DOPE SPRAYER Pancho Orozco MD CHEMISTRY [facility] [address] [place] [address], [place] * (ABNORMAL) LIPID PANEL (01/16/2023 7:58 AM CDT) [facility] CHOLESTEROL,TOTAL 53(L) 100 - 199 mg/dL 01/16/2023 9:02 AM CDT [facility] Comment: Cholesterol, Total Reference Ranges Desirable <200 mg/dL Borderline 200-239 mg/dL High >=240 mg/dL TRIGLYCERIDES 71 <150 mg/dL 01/16/2023 9:02 AM CDT [facility] HDL CHOLESTEROL 34(L) >40 mg/dL 9:02 AM CDT [facility] NON-HDL CHOLESTEROL 19 <145 mg/dl 01/16/2023 9:02 AM CDT [facility] CHOL/HDL RATIO 1.56 <4.50 01/16/2023 9:02 AM CDT [facility] LDL CHOLESTEROL 5 <=130 mg/dL 01/16/2023 9:02 AM CDT [facility] VLDL CHOLESTEROL 14 <=30 mg/dL 01/16/2023 9:02 AM CDT [facility] PROVIDER ORDERED STATUS RANDOM 01/16/2023 9:02 AM CDT [facility] Blood BLOOD SPECIMEN / Unknown Butterfly / Unknown 01/16/2023 7:58 AM CDT 01/16/2023 8:17 AM CDT Lizy Hummel NP [facility] [address] [place] [address], * ANTI HCV (05/17/2013 1:30 PM DOPE SPRAYER) ANTI HCV Non-reacti ve [facility] Blood specimen (specimen) BLOOD SPECIMEN / Unknown 05/17/2013 1:30 PM DOPE SPRAYER 05/17/2013 1:24 PM DOPE SPRAYER Arcelia Alvarez MD SEND OUTS [facility] [place] ZIP [id number] [place], [place] [address] [place] [address] from Last 3 Months or Most Recently Relevant to Health Maintenance Advance Directives * Full Code (Latest Code Status on File) Date Activated Date Inactivated Comments 01/14/2023 6:38 PM 01/28/2023 5:01 PM Question Answer Comments Code Status Discussion: Reviewed Preferences * Full Code Date Activated Date Inactivated Comments 01/14/2023 3:24 PM 01/14/2023 6:38 PM Question Answer Comments Code Status Discussion: Unable to Assess Preferences, Provider to review later * Full Code Date Activated Date Inactivated Comments 06/03/2022 11:55 PM 06/05/2022 2:21 PM Question Answer Comments Code Status Discussion: Reviewed Preferences * Full Code Date Activated Date Inactivated Comments 02/03/2020 2:15 PM 02/06/2020 6:21 PM Question Answer Comments Code Status Discussion: Discussed * Full Code Date Activated Date Inactivated Comments 08/31/2019 9:42 AM 09/01/2019 4:06 PM Care Teams Lining Brusher Relationship Specialty Start Date End Date Risa Campoverde PA [address] [place] [address] PCP - General Physician Tax Agent 04/06/18 Emanuel Dolan MD [address] , [place] [address] [place] [address] Cardiology Cardiovascular Disease 08/12/11 Rito Daily, [employer] [address] [place] [address] Psychologist Psychology 12/08/19
--- OUTSIDE RECORDS SUMMARY | 2023-08-14 08:01 | XMS_ITS | Data Portability ---
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 Right Carpal Tunnel Syndrome (CTS), longstanding symptoms refractory to conservative care including bracing and NSAIDs. 2. Right hand numbness, tingling, with classic median nerve sensory distribution, consistent with CTS. Anticoagulation alert: Patient is on 81 mg ASA and Plavix 75 mg status post multiple cardiac stent placement, most recent February 2020. Plavix is managed by make ready worker, Dr. Vishal Porter MD, [facility], P: [phone], F: [phone]. Patient states he is not allowed to discontinue Plavix at this time, however has an upcoming appointment with his make ready worker, he is approaching 1 year status post most recent stent placement. Will need to confirm with patient's make ready worker [facility] anticoagulation protocol of off Plavix 1 week prior to procedure, he may continue 81 mg ASA. Plan: 1. Right upper extremity EMG/NCS. Patient does not present with a EMG, he states he has seen his orthopedic provider who has diagnosed him with right carpal tunnel syndrome and waived need for EMG due to the patient being on Plavix. He is wondering if we can wave that requirement as well. Will discuss further with Dr. Ayala. Patient does have classic signs and symptoms for right carpal tunnel syndrome. 2. Right wrist and forearm ultrasound evaluation to assess the median nerve anatomy and formal in person PE will need to be done at time of procedure. 3. Patient educated on the Thread Carpal Tunnel Release (TCTR) procedure as well as other treatment options including Open and Endoscopic Carpal Tunnel Release surgery and conservative management of CTS. 4. Patient educated on risks of the TCTR which include: infection, allergic reaction, bleeding, nerve damage, failure to relieve CTS symptoms, risk for damage to associated structures in the area, persistent swelling, CRPS, pillar pain, stiffness, or the need for open carpal tunnel release for procedure failure. 5. Patient would like to proceed with right TCTR in February, we will call him when those dates are available. He will need anticoagulation letter sent to his make ready worker for confirmation as mentioned above. 6. Patient had questions, which were answered. In agreement with plan of care. I spent a total time of 52 minutes on the date of this encounter obtaining past medical history, discussing history of present illness, performing a medically appropriate examination, counseling and educating the patient, documenting clinical information in the electronic medical record, and ordering diagnostic testing. This visit was performed via live interactive two-way video. Clinician Location: Patient Location: [place] [address] Not available 02/06/2021 16:10:48 Plan of Treatment Reminders Order Date Submit Date Provider Last Modified By Organization Details Last Modified Time Details Appointments None record ed. Lab None record ed. Referral None record ed. Procedures None record ed. Surgeries None record ed. Imaging None record ed. Medication Orders None record ed. Patient TargetsNo targets recorded. Patient InstructionsNo instructions recorded. Reason for Referral None Reported. Medical Equipment None Reported. Allergies Allergen ID Allergen Name Allergen Category Reaction Reaction Severity Criticality Documentation Date Start Date Code Code System Note Provider Name and Address Organization Details Recorded Time 1966 isosorbid e medicatio n Not available Not available Not available 02/06/2021 6057 RxNorm Aggie nixon [facility] 14:13:51 1967 Celexa medicatio n Not available Not available Not available 02/06/2021 60557 8 RxNorm Aggie nixon, [facility] 14:14:49 Medications Name Sig Start Date Stop Date Status Note LastModified by Organization Details LastModified Time meloxicam 15 mg tablet TAKE ONE TABLET BY MOUTH ONE TIME DAILY 02/06 completed Not Available Not Available Not Available clopidogrel 75 mg tablet TAKE ONE TABLET BY MOUTH ONE TIME DAILY active Not Available Not Available No t Available oxycodone-a cetaminophe n 5 mg-325 mg tablet TAKE 1-2 TABLETS BY MOUTH EVERY 4 HOURS NEEDED. DO NOT TAKE MORE THAN 6 TABLETS DAILY. TAKE 1 TABLET FOR MODERATE PAIN AND 2 FOR SEVERE P 02/06 completed Not Available Not Available Not Available alprazolam 0.5 mg tablet TAKE ONE TABLET BY MOUTH ONE TIME DAILY AT BEDTIME NEEDED. USE SPARINGLY . active Not Available Not Available No t Available Concerta 36 mg tablet,exte nded release TAKE ONE TABLET BY MOUTH ONE TIME DAILY active Not Available Not Available No t Available nitroglycer in 0.[address] 1 tablet under the tongue every 5 minutes if needed for chest pain. max 3 tablets/1 5 minutes. active Not Available Not Available No t Available Asprin Ec Low Dose 81 mg tablet,chi yed release Take 1 tablet every day by oral route. active Not Available Not Available No t Available ezetimibe 10 mg tablet TAKE ONE TABLET BY MOUTH ONE TIME DAILY active Not Available Not Available No t Available rosuvastati n 40 mg tablet take 1 tablet by mouth once daily at bedtime every other day. active Not Available Not Available No t Available metoprolol tartrate 25 mg tablet TAKE ONE TABLET BY MOUTH TWICE DAILY active Not Available Not Available No t Available Vitals Date Recorded Body height Body mass index (BMI) Body weight Provider Name and Address Organization Details Last Updated DateTime 02/06/2021 170.18 cm 34.5 kg/m2 82921.32 g Aggie nixon [facility] 02/06/2021 12:17:57 Social History Question Answer Notes LastModified by Organizat ion Details LastModified Time Tobacco Smoking Status Never Smoker Aggie nixon [facility] 02/06/2021 14:24:08 What Is Your Level Of Alcohol Consumption? Occasional Information not available 02/06/2021 Are You Currently Employed? 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 Right Information not available 02/06/2021 Sex: Male Functional Status None recorded. Mental Status None recorded. Family History Nothing Reported. Medical History Condition Response Diabetes N Heart Problems N Gout N Bleeding Disorder N Arthritis N Blood Clot N AIDS/HIV N Stroke N Thyroid Problems Y COPD N Asthma N Pacemaker N Anemia N Hepatitis Y Liver Disease N Rheumatoid Arthritis N Pulmonary Embolism N Hypertension Y Kidney Disease N Past Encounters Encounter ID Performer Location Encounter Start Date Encounter Closed Date Diagnosis/Indication Diagnosis SNOMED-CT Code [id number] Aggie WONG [place] [address] 02/06/2021 12:07:15 02/08/2021 03:50:15 Carpal tunnel syndrome of right wrist [id number] 08 Paresthesia of hand 3090 [address] Health Concerns Section Related Observation LastModified by Organization Detai ls LastModified Time None Recorded Concern Status LastModified by Organization Details LastModified Time None Recorded Advance Directives Directive None Recorded Payers Encounter Date Sequence Insurance Name Policy Number Policy Jaime Covered Member ID Jaime Member ID Guarantor Name 02/06/2021 1 *SELF PAY* Th omas Grulla Notes Date Note Type Note Provider Name and Address Organization Details Recorded Time 02/06/2021 text/html HPI Notes: To accommodate patient care during the COVID-19 pandemic, this visit was performed using [employer], which is an encrypted software. The patient confirmed knowledge of the limitations of the use of telemedicine which were verbally given by the provider. Patient is aware this visit will be treated as an office visit and is billable for insurance purposes if applicable. Verification of patient identity was established with the patient. Patient consents to telemedicine. Verbal consent obtained to share records with PCP and make ready worker and consent to treat obtained. Patient is a 60 year old right handed male. Referred by self for evaluation of right hand, numbness, tingling, frequently wakes him up at night. He is status post left open carpal tunnel release and thumb surgery, done by orthopedic hand surgeon several months ago simultaneously. Patient is employed. 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 He has not missed work. This is evaluated as personal injury. The onset of the symptoms was approximately 20 years ago, gradual onset. Symptoms have occurred: Fairly continuously over the last few weeks, wake him up at night, also has symptoms during the day with use of hands. Patient right hand numbness and tingling in the median nerve sensory distribution, primarily the thumb, index and long finger. Patient has nocturnal worsening of numbness and tingling. Patient has worsening of pain in palm and volar wrist while holding or gripping. Patient does not have numbness and tingling in the little finger and in the hypothenar area. Patient does not have upper extremity radiating pain. Denies previous injury or trauma. He is status post left open carpal tunnel release and left thumb surgery, denies left hand symptoms. Aggravating factors include: reptive use, prolonged grasping, painting. The symptoms are improved by wrist splinting, NSAID's and rest. Patient has not had injections, occupational or physical therapy for these symptoms. Patient denies elbow pain, admits to shoulder and trapezius muscle pain intermittently, denies neck pain. Dupuytren Contracture: Patient does not have hand contracture deformity. Patient does not have difficulty to completely straighten bilateral fingers. Trigger Finger: Denies symptoms. De Quervain & thumb CMC OA: Patient does not have bilateral base of thumb pain with griping, grasping or pinching an object, or using thumb to apply force. Patient does not have swelling near the bilateral base of thumb. Patient does not have a sticking and stop-and-go sensation in the bilateral thumb with moving. Denies history of diabetes. Denies history of hypothyroidism. Denies history of rheumatoid arthritis. Patient will complete the [place] Carpal Tunnel Syndrome Questionnaire which will be reviewed and scanned to chart. Related History: Status post left open carpal tunnel release and thumb surgery. Patient is on 81 mg ASA and Plavix 75 mg status post cardiac stent placement in February 2020. Outside reports reviewed: EMG/NCS were not done. Aggie nixon, [facility] [employer], [facility] 02/06/2021 16:17:08
--- NOTE | 2023-08-14 08:15 | US_ITS ---
Patient: ARIEL JACOBO Facility:?[facility] Patient ID:?[id number] Site Patient ID:?[id number]. Site :?1960 Study:?US-Thyroid Procedure DR GALVAN TO READ-08/14/2023 9:14:19 AM Ordering Physician:?GARCIA PAEZ Final Report: INDICATION : Inferior isthmus thyroid nodule. TECHNIQUE : Ultrasound-guided fine needle aspiration of thyroid nodule. Comparison : Ultrasound 07/16/2023 FINDINGS : PROCEDURE: After the informed consent and time-out, multiple fine needle aspirations were obtained from the thyroid nodule. Fine needle performed. 25 gauge needles were used. Lidocaine was used for local anesthesia. The preliminary cytology was adequate for interpretation. Real-time imaging was used for guidance and needle placement. Post imaging ultrasound demonstrates no immediate complication. IMPRESSION : Successful fine needle aspiration of thyroid nodule within the isthmus. Dictated by Paresh Galvan MD @ 08/14/2023 9:45:24 AM Signed by:?Paresh Galvan MD @08/14/2023 9:45:24 AM (Electronic Signature)
== END 2023-08-14 07:59 | disposition home or self-care (01) ==
LOC: US 08:00
PROVIDERS: PCP Physician Assistant Medical; Visit Provider Physician Assistant Medical
DX: E07.9 Disorder of thyroid, unspecified (principal)
CPT/HCPCS: 10005; 88173

== ENCOUNTER 2024-10-11 14:18 | Outpatient (CLI) | payer OTHER, SELFPAY ==
--- NOTE | 2024-10-11 14:30 | MR_ITS ---
[address] [address] Phone:?[phone] Fax:?[phone] Referring Physician Information: Suleman Buchanan M.D. [address] [facility] [address] Phone:?[phone] Fax:?[phone] Patient:Lacey Vera D.O.B:?1960 Sex:?Male Phone:?[phone] [facility] MRN:?[id number] Exam Date:?10/11/2024 EXAM: MRI of the RIGHT SHOULDER WITHOUT CONTRAST CLINICAL HISTORY: Ongoing right shoulder pain. History of injury. Evaluate for rotator cuff tear. COMPARISONS: None available. TECHNICAL: MRI sequences of the right shoulder: Axials: PD, T2 Coronals: PD, STIR, T2 Sagittals: PD, T2 SEDATION: None CONTRAST: None FINDINGS: Bones: No fracture or suspicious bone marrow signal abnormality. Coracoacromial arch: Acromion: No os acromiale. Type I-II acromion. Acromioclavicular joint: Mild degenerative changes. Coracoclavicular ligament: The coracoclavicular ligament is intact. Rotator cuff muscles/tendons: Supraspinatus: Moderate tendinopathy. No muscular atrophy. Infraspinatus: Mild tendinopathy. No muscular atrophy. Teres minor: The teres minor tendon and muscle are intact. Subscapularis: 1.0 cm in craniocaudad dimension by 2.5 cm in transverse dimension slitlike split longitudinal intrasubstance/interstitial tear within the superior portion of the subscapularis tendon superimposed upon mild to moderate subscapularis tendinopathy. No muscular atrophy. Labrum and glenohumeral joint: No evidence of labral tear although evaluation is suboptimal because of nonarthrogram technique. Physiologic amount of joint fluid. Approximately 1.0 x 1.0 cm area of near full-thickness chondral loss over the superomedial portion of the humeral head. Suspected 6 x 6 x 1 mm chondral body within the subscapular recess best seen on sagittal series 9 image 19. No convincing evidence of capsular edema or thickening although evaluation is suboptimal because of lack of joint distention. Proximal biceps tendon, long head and short heads: Moderate tendinopathy of the proximal long head of the biceps tendon, which is mildly medially subluxed at the superior aspect of the bicipital groove extending into the split longitudinal intrasubstance/interstitial subscapularis tendon tear. The short head is intact. Bursae: Subacromial/subdeltoid: No convincing subacromial bursal thickening/bursitis. Subcoracoid: No convincing subcoracoid bursal thickening/bursitis. IMPRESSION: 1. 1.0 x 2.5 cm slitlike split longitudinal intrasubstance/interstitial tear within the superior portion of the subscapularis tendon superimposed upon mild to moderate subscapularis tendinopathy. 2. Moderate tendinopathy of the proximal long head of the biceps tendon, which is mildly medially subluxed at the superior aspect of the bicipital groove extending into the split longitudinal intrasubstance/interstitial subscapularis tendon tear. 3. Moderate supraspinatus tendinopathy. 4. Mild infraspinatus tendinopathy. 5. Approximately 1.0 x 1.0 cm area of near full-thickness chondral loss over the superomedial portion of the humeral head. Suspected 6 x 6 x 1 mm chondral body within the subscapular recess. 6. No rotator cuff muscular atrophy. RCB Electronically signed on 10/13/2024 8:00:00 AM by Marvin Pierce M.D.
== END 2024-10-11 14:19 | disposition home or self-care (01) ==
PROVIDERS: PCP Physician Assistant Medical; Visit Provider Orthopaedic Surgery Sports Medicine
DX: M25.511 Pain in right shoulder (principal); S46.911A Strain of unspecified muscle, fascia and tendon at shoulder and upper arm level, right arm, initial encounter; S46.211A Strain of muscle, fascia and tendon of other parts of biceps, right arm, initial encounter; S49.91XA Unspecified injury of right shoulder and upper arm, initial encounter
CPT/HCPCS: 73221